=== PATIENT | female | born 1970 | race Caucasian/White ===

== ENCOUNTER 2016-12-10 07:59 | Emergency (ER) | payer OTHER, MEDICAID ==
[~2016-12-10] VITALS: Ht 172.7 cm; Wt 74.8 kg
[~2016-12-10 07:59] MED LIST: AUGMENTIN; NORCO
[2016-12-10 08:00] VITALS: BP_SYST 128
--- NOTE | 2016-12-10 08:00 | NUR ---
BROUGHT BACK TO BED #7 AND TRIAGED. REPORT GIVEN TO ANTONINO
--- NOTE | 2016-12-10 08:10 | NUR ---
Pt states has vertigo for the past 4 days, no complaints of pain, no SOB. Pt stated that she has not fallen. Pt states she had vertigo 5 years ago. Pt has taken medications for the vertigo but it is too late and she is dizzy all the time. No other injuries/complaints per pt or noted
--- NOTE | 2016-12-10 08:26 | NUR ---
ER at bedside examining patient.
[2016-12-10] MEDS ORDERED: PROMETHAZINE HCL 25 MG/ML AMP IM ONE (08:30)
--- NOTE | 2016-12-10 09:15 | NUR ---
Pt is resting comfortably in bed and stated that the dizziness is feeling much better.
[2016-12-10 10:40] VITALS: BP_SYST 113
--- NOTE | 2016-12-10 10:40 | NUR ---
Patient given written and verbal discharge instructions and verbalizes understanding. ER MD discussed with patient the results and treatment provided. Patient in stable condition. ID arm band removed. Rx of antivert given. Patient educated on pain management and to follow up with PMD. Pain Scale 0. Opportunity for questions provided and answered.
== END 2016-12-10 10:40 | disposition home or self-care (01) ==
LOC: SED 07:59
DX: H81.10 Benign paroxysmal vertigo, unspecified ear (principal); I10 Essential (primary) hypertension; Z88.0 Allergy status to penicillin
CPT/HCPCS: 96372; 99283; J2550

== ENCOUNTER 2016-12-24 07:56 | Inpatient (IN) | payer OTHER, MEDICAID ==
[~2016-12-24] VITALS: Ht 172.7 cm; Wt 75.3 kg
[2016-12-24 07:56] VITALS: BP_SYST 140
[2016-12-24 08:34] LABS: BILIRUBIN,URINE NEGATIVE (NEGATIVE); BLOOD, URINE NEGATIVE (NEGATIVE); CLARITY/URINE CLEAR (CLEAR); COLOR,URINE YELLOW (YELLOW); GLUCOSE,URINE NEGATIVE (NEGATIVE); KETONES,URINE NEGATIVE (NEGATIVE); LEUKOCYTE ESTERASE ,URINE NEGATIVE (NEGATIVE); NITRITE, URINE NEGATIVE (NEGATIVE); PROTEIN URINE NEGATIVE (NEGATIVE); UROBILINOGEN,URINE 0.2 (0.2-1.0)
[2016-12-24] MEDS ORDERED: MECLIZINE HCL 25 MG TABLET (ANITVERT) PO ONE (08:45)
[2016-12-24] MEDS ORDERED: KETOROLAC TROMETHAMINE 60 MG/2 ML VIAL IM ONE (08:45)
[2016-12-24] MEDS ORDERED: DIAZEPAM 10 MG/2 ML DISP.SYRIN IM ONE (09:30)
[2016-12-24] MEDS ORDERED: NACL 0.9% 1,000 ML IV ONE (10:15)
[2016-12-24] MEDS ORDERED: PROMETHAZINE HCL 25 MG/ML AMP IVP ONE (10:15)
[2016-12-24] MEDS ORDERED: DIPHENHYDRAMINE INJ 50 MG/ML VIAL IVP ONE ×2 (10:15→11:45)
[2016-12-24] MEDS ORDERED: MORPHINE 4 MG/ML INJ. SYRINGE IVP ONE (11:45)
[2016-12-24] MEDS ORDERED: HYDROmorphone 1 MG INJ. 1 MG/ML AMPUL IVP ONE (11:45)
[2016-12-24] MEDS ORDERED: TRAZ-126 PO (12:56)
[2016-12-24] MEDS ORDERED: IBUP-1480 PO (12:56)
[2016-12-24] MEDS ORDERED: OXYC-133 PO (12:56)
[2016-12-24] MEDS ORDERED: ADDERALL PO (12:57)
[2016-12-24] MEDS ORDERED: SER100 PO (12:57)
[2016-12-24] MEDS ORDERED: LURA20TA PO (12:57)
[2016-12-24 13:27] VITALS: BP_SYST 153
[2016-12-24] MEDS: IBUPROFEN 800 MG TABLET PO SCH ×2 (15:00→20:45)
[2016-12-24] MEDS ORDERED: OXYCODONE/ACETAMINOPHEN *10*mg/325 mg TABLET PO PRN ×2 (15:00→18:00)
[2016-12-24] MEDS ORDERED: ACETAMINOPHEN 325 MG TABLET PO PRN (15:30)
[2016-12-24] MEDS ORDERED: DEXAMETHASONE SOD PHOSPHATE 10 MG/ML VIAL IVP ONE (15:30)
[2016-12-24 15:38] LABS: BASOPHILS % (AUTO) 0.3 % (0.0-2.0); EOSINOPHILS # (AUTO) 0.3 K/uL (0.0-0.4); EOSINOPHILS % (AUTO) 4.3 % (0.0-4.0); HEMATOCRIT 32.7 % (36-48); HEMOGLOBIN 10.6 g/dL (12.0-16.0); LYMPHOCYTES # (AUTO) 2.1 K/uL (1.0-5.5); LYMPHOCYTES % (AUTO) 33.6 % (20.5-51.5); MEAN CORPUSCULAR HEMOGLOBIN 27 pg (27-31); MEAN CORPUSCULAR HGB CONC 33 % (32-36); MEAN CORPUSCULAR VOLUME 84 fL (79.0-98.0); MONOCYTES # (AUTO) 0.5 K/uL (0.0-1.0); MONOCYTES % (AUTO) 7.5 % (1.7-9.3); NEUTROPHILS # (AUTO) 3.2 K/uL (1.8-7.7); NEUTROPHILS % (AUTO) 54.3 % (40.0-70.0); PLATELET COUNT (AUTO) 287 K/uL (130-430); RED BLOOD CELL COUNT(AUTO) 3.92 MIL/uL (4.2-6.2); RED CELL DISTRIBUTION WIDTH 12.6 % (9.0-15.0); WHITE BLOOD COUNT (AUTO) 6.1 K/uL (4.8-10.8)
[2016-12-24 15:42] LABS: ANION GAP 4 (5-15); CALCIUM 8.5 mg/dL (8.4-11.0); CHLORIDE 106 mmol/L (98-107); CREATININE 0.63 mg/dL (0.55-1.30); GLUCOSE 124 mg/dL (70-99); POTASSIUM 3.3 mmol/L (3.5-5.1); SODIUM SERUM 140 mmol/L (136-145); UREA NITROGEN, BLOOD 10 mg/dL (8-21)
[2016-12-24 15:44] LABS: GFR AFRICAN AMERICAN 131 mL/min (>90)
[2016-12-24 15:58] LABS: ALANINE AMINOTRANSFERASE 18 U/L (12-78); ALBUMIN 2.9 g/dL (3.4-4.8); ASPARTATE AMINOTRANSFERASE 18 U/L (10-37); TOTAL BILIRUBIN 0.3 mg/dL (0.0-1.0)
[2016-12-24 15:59] LABS: THYROID STIMULATING HORMONE < 0.01 uIu/mL (0.34-4.82)
[2016-12-24] MEDS ORDERED: OXYCODONE/ACETAMINOPHEN *10*mg/325 mg TABLET PO SCH (17:54)
[2016-12-24] MEDS: HYDROmorphone 1 MG INJ. 1 MG/ML AMPUL IVP PRN ×2 (17:58→22:49)
[2016-12-24 18:20] VITALS: BP_SYST 131
[2016-12-24] MEDS: PROCHLORPERAZINE EDISYLATE 10 MG/2 ML VIAL IVP SCH ×2 (18:22→22:48)
[2016-12-24] MEDS: DIPHENHYDRAMINE INJ 50 MG/ML VIAL IVP SCH ×2 (18:23→22:48)
[2016-12-24] MEDS ORDERED: DIPHENHYDRAMINE INJ 50 MG/ML VIAL ONE (18:26)
[2016-12-24] MEDS ORDERED: PROCHLORPERAZINE EDISYLATE 10 MG/2 ML VIAL ONE (18:27)
[2016-12-24] MEDS: VALPROATE SODIUM 500 MG in D5W 100 ML IV SCH ×2 (18:36→22:48)
[2016-12-24] MEDS ORDERED: VALPROATE SODIUM 100 MG/ML VIAL (DEPACON) IV ONE ×2 (18:38→22:10)
[2016-12-24 19:15] VITALS: BP_SYST 130
[2016-12-24] MEDS ORDERED: traZODone HCL 50 MG TABLET (DESYREL) PO SCH (21:00)
[2016-12-24] MEDS ORDERED: QUEtiapine FUMARATE 100 MG TABLET PO SCH (21:00)
[2016-12-25 00:05] VITALS: BP_SYST 115
[2016-12-25 05:06] VITALS: BP_SYST 113
[2016-12-25] MEDS ORDERED: VALPROATE SODIUM 100 MG/ML VIAL (DEPACON) IV ONE (05:16)
[2016-12-25] MEDS: VALPROATE SODIUM 500 MG in D5W 100 ML IV SCH (05:25)
[2016-12-25] MEDS: PROCHLORPERAZINE EDISYLATE 10 MG/2 ML VIAL IVP SCH (05:26)
[2016-12-25] MEDS: DIPHENHYDRAMINE INJ 50 MG/ML VIAL IVP SCH (05:26)
[2016-12-25] MEDS: HYDROmorphone 1 MG INJ. 1 MG/ML AMPUL IVP PRN ×2 (05:27→11:53)
[2016-12-25 08:00] VITALS: BP_SYST 106
[2016-12-25] MEDS: IBUPROFEN 800 MG TABLET PO SCH ×2 (09:34→14:17)
[2016-12-25] MEDS ORDERED: IBUPROFEN 800 MG TABLET ONE (09:40)
[2016-12-25] MEDS: MECLIZINE HCL 25 MG TABLET (ANITVERT) PO SCH ×2 (10:35→14:16)
[2016-12-25 12:30] VITALS: BP_SYST 102
[2016-12-25] MEDS ORDERED: POTASSIUM CHLORIDE 20 MEQ TAB.PRT.SR PO ONE (13:45)
[2016-12-25] MEDS ORDERED: VIS25 PO (13:56)
[2016-12-25 14:21] VITALS: BP_SYST 124
== END 2016-12-25 14:40 | disposition home or self-care (01) | DRG 149 ==
LOC: SED 07:56 → STU 12:36
PROVIDERS: ADMIT Internal Medicine; ATTEND Internal Medicine
DX: H81.10 Benign paroxysmal vertigo, unspecified ear (principal); F31.9 Bipolar disorder, unspecified; E87.6 Hypokalemia; G43.809 Other migraine, not intractable, without status migrainosus; I10 Essential (primary) hypertension; Z98.84 Bariatric surgery status; Z90.49 Acquired absence of other specified parts of digestive tract; Z88.0 Allergy status to penicillin; Z79.1 Long term (current) use of non-steroidal anti-inflammatories (NSAID); Z79.899 Other long term (current) drug therapy
CPT/HCPCS: 36415; 80053; 81003; 81025; 84443-TC; 84703; 85025; 96361; 96372; 96374; 96375; 99285; J0780; J1100; J1170; J1200; J1885; J2550; J3360; J7050; J7060; J8597

== ENCOUNTER 2021-03-20 17:10 | Emergency (ER) | payer OTHER, MEDICAID ==
[~2021-03-20] VITALS: Ht 175.3 cm; Wt 78.5 kg
[~2021-03-20 17:10] MED LIST changes: +ADDERALL PO; +IBUP-1970 PO; +LURA20TA PO; +OXYC-133 PO; +SER100 PO; +TRAZ-251 PO; +VIS25 PO
[2021-03-20 18:01] VITALS: BP_SYST 140
[2021-03-20] MEDS ORDERED: KETOROLAC TROMETHAMINE 60 MG/2 ML VIAL IM ONE (18:15)
--- NOTE | 2021-03-20 18:30 | NUR ---
Patient to [facility] to gown for evaluation. Side rails up.
--- NOTE | 2021-03-20 18:35 | NUR ---
PT ARRIVES VIA BLS FOR A SHARP 8/10, CONSTANT, RIGHT SIDED SHOULDER AND BACK PAIN. PT WAS LIFTING A HEAVY BOX FROM THE GROUND WHEN THE INJURY OCCURED.
--- NOTE | 2021-03-20 18:46 | NUR ---
ER at bedside examining patient.
--- NOTE | 2021-03-20 18:50 | NUR ---
MEDICATED W/ TORADOL PER MD ORDER
[2021-03-20 18:58] VITALS: BP_SYST 140
[2021-03-20] MEDS ORDERED: NAPR-690 PO (19:14)
--- NOTE | 2021-03-20 19:26 | NUR ---
Patient given written and verbal discharge instructions and verbalizes understanding. ER MD discussed with patient the results and treatment provided. Patient in stable condition. ID arm band removed. Rx of NAPROXEN given. Patient educated on pain management and to follow up with PMD. Pain Scale 3/10. Opportunity for questions provided and answered. Medication side effect fact sheet provided.
== END 2021-03-20 19:26 | disposition home or self-care (01) ==
LOC: SED 17:10
DX: S46.911A Strain of unspecified muscle, fascia and tendon at shoulder and upper arm level, right arm, initial encounter (principal); Z88.0 Allergy status to penicillin; Z88.5 Allergy status to narcotic agent; Z79.899 Other long term (current) drug therapy; X50.0XXA Overexertion from strenuous movement or load, initial encounter; Y93.89 Activity, other specified; Y92.89 Other specified places as the place of occurrence of the external cause; Y99.8 Other external cause status
CPT/HCPCS: 73030; 96372; 99283; J1885

== ENCOUNTER 2024-04-22 23:35 | Emergency (ER) | payer OTHER, BC, MEDICAID ==
[~2024-04-22] VITALS: Ht 175.3 cm; Wt 94.8 kg
[~2024-04-22 23:35] MED LIST changes: +NAPR-690 PO
[2024-04-22 23:45] VITALS: BP_SYST 141; PULSE 70; RESP 22; TEMP 98.9; O2SAT 96
[2024-04-23 00:39] LABS: BILIRUBIN,URINE NEGATIVE (NEGATIVE); BLOOD, URINE 2+ (NEGATIVE); CLARITY/URINE CLEAR (CLEAR); COLOR,URINE YELLOW (YELLOW); GLUCOSE,URINE NEGATIVE (NEGATIVE); KETONES,URINE 1+ (NEGATIVE); LEUKOCYTE ESTERASE ,URINE NEGATIVE (NEGATIVE); NITRITE, URINE NEGATIVE (NEGATIVE); PROTEIN URINE TRACE (NEGATIVE); UROBILINOGEN,URINE 0.2 (0.2-1.0)
[2024-04-23 00:49] LABS: BASOPHILS % (AUTO) 0.5 % (0.0-2.0); EOSINOPHILS # (AUTO) 0.1 K/uL (0.0-0.4); EOSINOPHILS % (AUTO) 1.1 % (0.0-4.0); HEMATOCRIT 41.6 % (36-48); HEMOGLOBIN 14.2 g/dL (12.0-16.0); LYMPHOCYTES # (AUTO) 1.3 K/uL (1.0-5.5); LYMPHOCYTES % (AUTO) 19.1 % (20.5-51.5); MEAN CORPUSCULAR HEMOGLOBIN 31 pg (27-31); MEAN CORPUSCULAR HGB CONC 34 % (32-36); MEAN CORPUSCULAR VOLUME 90 fL (79.0-98.0); MONOCYTES # (AUTO) 0.4 K/uL (0.0-1.0); NEUTROPHILS # (AUTO) 5.1 K/uL (1.8-7.7); NEUTROPHILS % (AUTO) 73.3 % (40.0-70.0); PLATELET COUNT (AUTO) 330 K/uL (130-430); RED BLOOD CELL COUNT(AUTO) 4.63 MIL/uL (4.2-6.2); RED CELL DISTRIBUTION WIDTH 13.1 % (9.0-15.0)
[2024-04-23 00:50] LABS: BACTERIA,URINE FEW /HPF (None Seen); WBC,URINE 0-3 /HPF (0-3)
[2024-04-23 00:51] LABS: MUCUS,URINE 2+ /LPF (None Seen)
[2024-04-23] MEDS: NACL 0.9% 1,000 ML IV ONE (00:54)
[2024-04-23] MEDS: ONDANSETRON HCL 4 MG/2 ML VIAL IVP ONE ×2 (00:56→02:21)
[2024-04-23 01:27] LABS: ALBUMIN 3.5 g/dL (3.4-4.8); CALCIUM 9.1 mg/dL (8.4-11.0); CREATININE 0.84 mg/dL (0.55-1.30); POTASSIUM 4.1 mmol/L (3.5-5.1); TOTAL BILIRUBIN 0.6 mg/dL (0.0-1.0); TOTAL PROTEIN, SERUM 7.2 g/dL (6.4-8.3)
[2024-04-23 01:28] LABS: BILIRUBIN,DIRECT 0.1 mg/dL (0.0-0.3)
[2024-04-23] MEDS ORDERED: ONDA-8 TL (05:08)
[2024-04-23 05:24] VITALS: BP_SYST 138; PULSE 74; RESP 19; TEMP 98.6; O2SAT 98
== END 2024-04-23 05:25 | disposition home or self-care (01) ==
LOC: SED 23:35
DX: R11.2 Nausea with vomiting, unspecified (principal); T38.3X5A Adverse effect of insulin and oral hypoglycemic [antidiabetic] drugs, initial encounter; R06.02 Shortness of breath; R10.9 Unspecified abdominal pain; F31.9 Bipolar disorder, unspecified; Z88.0 Allergy status to penicillin; Z88.5 Allergy status to narcotic agent; Z79.899 Other long term (current) drug therapy
CPT/HCPCS: 99285; 80076; 80048; 81001; 83690; 85025; 36415; 81000; 74176; 96374; 96361; 96376; 81015; J2405